=== PATIENT | female | born 1955 | race Hispanic/Latino ===

== ENCOUNTER 2017-05-15 20:19 | Observation (INO) | payer OTHER ==
[2017-05-15] MEDS ORDERED: NORMAL SALINE 1,000 ML IV ONE (20:28)
[2017-05-15 20:41] LABS: Hematocrit 37.8 % (37.0-47.0); Hemoglobin 12.9 gm/dL (12.5-16.0); Mean Cell Volume 95.5 fl (78-100); Mean Corpuscular Hemoglobin 32.6 pg (27-31); Mean Corpuscular Hgb Conc 34.1 g/dl (32-36); Mean Platelet Volume 9.7 fl (6.0-9.5); Neutrophil # 5.3 K/mm3 (1.3-6.0); Neutrophil % 60.7 % (42-75.0); Platelet Count 230 K/mm3 (150-450); Red Blood Count 3.96 M/mm3 (4.2-5.4); Red Cell Distribution Width 12.4 % (11.5-14.0); White Blood Count 8.7 K/mm3 (4.0-10.5)
[2017-05-15] MEDS ORDERED: HYDROmorphone HCL 1 MG/ML DISP.SYRIN IV ONE ×2 (20:47→22:16)
[2017-05-15] MEDS ORDERED: HYDROmorphone HCL 1 MG/ML DISP.SYRIN ONE (20:49)
[2017-05-15 20:52] LABS: Prothrombin Time (Patient) 9.6 Seconds (9.4-11.4)
[2017-05-15 20:53] LABS: INR 0.92 INR (0.90-1.10)
[2017-05-15 20:56] LABS: Albumin * 3.8 gm/dl (3.4-5.0); Anion Gap 14.8 mmol/L (6.8-13.8); BUN/Creatinine Ratio 13.3 (9.0-21.6); Bilirubin, Total 0.6 mg/dL (0.0-1.1); Ca. Corrected For Albumin 8.5 mg/dL (8.4-10.2); Calcium * 8.7 mg/dL (7.9-10.9); Carbon Dioxide 25.7 mmol/L (24-32.6); Potassium 3.5 mmol/L (3.4-4.6); Total Protein 6.9 gm/dL (6.2-8.2)
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
[2017-05-15] MEDS ORDERED: HYDROmorphone HCL 1 MG/ML DISP.SYRIN IV PRN (21:45)
--- NOTE | 2017-05-15 23:36 | HP ---
Chief Complaint - Chief Complaint Date of Service: 05/15/17 Time of Service: 23:35 Chief Complaint: "Fall, RT knee pain". Source of HPI- Pt; reliable, ER provider report. History of Present Illness: Mrs. Jimenez is a 62-yr-old [place] female who has no pertinent medical history. Pt states that she was out tonight drinking alcohol and she missed to steps on the stairwell after using the bathroom and she fell foward landing on her RT knee. She attempted to stand up and she felt her knee bend outward to the side. She denies hitting her head on surface or any object and there was no loss of consciousness. She could not bear any weight due to pain. EMS was called and she was brought to [facility] ER. At the ED, the Knee and tibial/fibula X- rays showed she had minimally displaced proximal tibia fracture with no displaced proximal fibula fracture & and transverse fracture through the proximal tibia. Ortho consulted by the ERP and he gave recommendations that the fracture was inoperable and that pt can be discharged home on knee immobilize, NWB status and follow-up next week at the Ortho clinic. ERP had concerns for ineffective pain control at the ED and compartment syndrome, which was reasonable enough for the pt to be admitted at least under observation status. - Patient's Past Medical History Patient History - Medical: No pertinent hx, Other Patient History - Cardiac/Respiratory: No pertinent hx Patient History - Cancer: No Hx of Cancer Patient History - Surgical Procedures: No surgical history Patient History - Other: None LMP (females 10-50): Menopausal - Family History Mother Family History - Medical: Father Family History - Medical: - Social History Living Situations: spouse Abuse History: No History of abuse Psych History: No pertinent hx Smoking Status: Current every day smoker Have you smoked in the past 12 months: Yes Do you dip or chew tobacco: No Patient requests Smoking Cessation Consult: No Initiate information on Smoking Cessation: No Alcohol Use: occasionally Drug Use: none - Immunizations Immunizations Up to Date: Yes History of Influenza Vaccine: Yes Review Of Systems (GEN) - Review of Systems Generalized/Overall Review: Absent: Weakness, Chills, Fever, Malaise EENTM: Absent: Eye Pain, Blurred Vision, Tearing Respiratory: Absent: Cough, Shortness of Breath, Orthopnea Cardiac: Absent: Chest Pain, Edema, Palpitations Abdominal: Absent: Nausea, Vomiting, Hematemesis Genitourinary: Absent: Burning, Itching, Urgency, Frequency Musculoskeletal: Absent: Joint Pain, Back Pain, Joint Swelling, Muscle Pain Neurological: Absent: Headache, Anxiety, Depressed, Emotional Problems Skin: Absent: Dryness, Lesions, Lumps Endocrine: Absent: Intolerance to Cold, Intolerance to Heat Misc: All systems neg except as marked Immunizations: IMMUNIZATION HX Immunizations Up to Date Yes History of Influenza Vaccine Yes Allergies/Adverse Reactions: Allergies Allergy/AdvReac Type Severity Reaction Status Date / Time codeine Allergy Verified 05/15/17 23:15 nitrofurantoin Allergy Verified 05/15/17 23:15 [From Macrodantin] Penicillins Allergy Verified 05/15/17 23:15 sulfisoxazole Allergy Verified 05/15/17 23:15 [From Gantrisin] Home Medications: HOME MEDICATIONS Calcium Carbonate [Calcium] 500 mg PO DAILY 05/15/17 [Last Taken Unknown] Exam - Exam Vital Signs: Vital Signs - Last Taken Temp 36.5 C 05/15/17 21:48 Pulse 76 05/15/17 22:17 Resp 16 05/15/17 23:06 BP 138/94 05/15/17 22:17 Pulse Ox 97 05/15/17 22:17 Constitutional: Present: Alert, Oriented x3, Cooperative, No distress ENT Exam: Present: normal ENT inspection, hearing grossly normal, dry mucous membranes. Absent: nasal drainage, pharyngeal erythema Eye Exam: bilateral eye: normal inspection, PERRL Neck: Present: full range of motion, supple, normal inspection Back Exam: Present: normal inspection, no CVA tenderness Breasts: Present: Exam deferred Respiratory: Present: normal breath sounds, No wheezing Cardiovascular/Chest: Present: normal peripheral pulses, regular rate, rhythm, no chest tenderness, no murmur Abdomen: Present: Normal bowel sounds, soft, nontender, nondistended /Rectal: Present: Exam deferred Extremity: Present: leg pain, other - RT Knee sweelling, Limited ROM and pain with flexion of the Knee Skin Exam: Present: warm/dry, no cyanosis, cool/dry Lymphatic: Present: no adenopathy Neurologic: Present: no motor/sensory deficits, alert, normal mood/affect, oriented x 3 Appearance: Present: appropriate appearance, appropriate insight Eye contact: Present: cooperative, good eye contact, normal speech Thoughts: Present: normal thought pattern, no apparent hallucination Diagnostic Studies: Laboratory Results WBC 8.7 K/mm3 (4.0-10.5) 05/15/17 20:36 RBC 3.96 M/mm3 (4.2-5.4) L 05/15/17 20:36 Hgb 12.9 gm/dL (12.5-16.0) 05/15/17 20:36 Hct 37.8 % (37.0-47.0) 05/15/17 20:36 MCV 95.5 fl (78-100) 05/15/17 20:36 MCH 32.6 pg (27-31) H 05/15/17 20:36 MCHC 34.1 g/dl (32-36) 05/15/17 20:36 RDW 12.4 % (11.5-14.0) 05/15/17 20:36 Plt Count 230 K/mm3 (150-450) 05/15/17 20:36 MPV 9.7 fl (6.0-9.5) H 05/15/17 20:36 Immature Gran % (Auto) 0.30 % (0.001-0.429) 05/15/17 20:36 Immature Gran # (Auto) 0.03 K/mm3 (0.000-0.0310) 05/15/17 20:36 Neutrophils % 60.7 % (42-75.0) 05/15/17 20:36 Lymphocytes % 32.2 % (20-51) 05/15/17 20:36 Monocytes % 5.4 % (0.0-9) 05/15/17 20:36 Eosinophils % 0.8 % (0.0-3.0) 05/15/17 20:36 Basophils % 0.6 % (0.0-1.0) 05/15/17 20:36 Nucleated RBC % 0.0 k/mm3 (0-1) 05/15/17 20:36 Neutrophils # 5.3 K/mm3 (1.3-6.0) 05/15/17 20:36 Lymphocytes # 2.8 k/mm3 (1.5-3.5) 05/15/17 20:36 Monocytes # 0.5 k/mm3 (0.0-1.0) 05/15/17 20:36 Eosinophils # 0.1 k/mm3 (0.0-0.7) 05/15/17 20:36 Absolute Basophils 0.1 k/mm3 (0.0-0.1) 05/15/17 20:36 PT 9.6 Seconds (9.4-11.4) 05/15/17 20:36 INR (Anticoag Therapy) 0.92 INR (0.90-1.10) 05/15/17 20:36 Sodium 138 mmol/L (132-142) 05/15/17 20:36 Plasma Sodium 138 mmol/L (130-142) 05/15/17 20:36 Potassium 3.5 mmol/L (3.4-4.6) 05/15/17 20:36 Chloride 101 mmol/L (97-106) 05/15/17 20:36 Carbon Dioxide 25.7 mmol/L (24-32.6) 05/15/17 20:36 Anion Gap 14.8 mmol/L (6.8-13.8) H 05/15/17 20:36 BUN 6 mg/dL (3-23) 05/15/17 20:36 Creatinine 0.45 mg/dL (0.4-1.4) 05/15/17 20:36 Est GFR (Non-Af Amer) 150 mL/min (60-130) H D 05/15/17 20:36 BUN/Creatinine Ratio 13.3 (9.0-21.6) 05/15/17 20:36 Random Glucose 92 mg/dL (70-110) 05/15/17 20:36 Calcium 8.7 mg/dL (7.9-10.9) 05/15/17 20:36 Calcium Adj for Albumin 8.5 mg/dL (8.4-10.2) 05/15/17 20:36 Total Bilirubin 0.6 mg/dL (0.0-1.1) 05/15/17 20:36 AST 22 U/L (0-48) 05/15/17 20:36 ALT 20 U/L (19-67) 05/15/17 20:36 Alkaline Phosphatase 60 U/L (50-170) 05/15/17 20:36 Total Protein 6.9 gm/dL (6.2-8.2) 05/15/17 20:36 Albumin 3.8 gm/dl (3.4-5.0) 05/15/17 20:36 Ethyl Alcohol 143.0 mg/dL (0.0-10.0) H 05/15/17 20:36 Assessment/Plan - Assessment/Plan (1) Fracture, tibia and fibula, proximal Assessment: Mrs. Jimenez is a 62-yr-old [place] Female who missed two steps on a stairway leading to a fall, landing on her RT knee. The Knee and Tibial/fibula X-ray films revealed she sustained minimally displaced proximal tibia fracture with no displaced proximal fibula fracture & and transverse fracture through the proximal tibia. I discussed with Dr. Fernandes about pt's presentation and that the pt would be admitted under observation status for pain control and due to concerns by the ERP for compartment syndrome. He recommended the same outpt treatment plan as he had discussed with the ERP: NWB status, apply RT knee Immobilizer, Ice pack to affected extremity, PT & follow-up next week with Ortho clinic. Will transition pt to oral pain medications during the overnight stay and will have PT evaluate her in am for the proper assisting device while on NWB status. Problem: Acute Qualifiers: Encounter type: initial encounter Fracture type: closed Laterality: right Qualified Code(s): S82.101A - Unspecified fracture of upper end of right tibia, initial encounter for closed fracture; S82.831A - Other fracture of upper and lower end of right fibula, initial encounter for closed fracture
[2017-05-16] MEDS ORDERED: ONDANSETRON HCL/PF 2 MG/ML VIAL IV PRN (01:03)
[2017-05-16] MEDS: HYDROcodone/ACETAMINOPHEN 1 EACH TABLET PO PRN ×2 (04:19→08:11)
[2017-05-16] MEDS: CALCIUM CARBONATE 500 MG TAB.CHEW PO SCH ×2 (04:22→09:00)
--- NOTE | 2017-05-16 06:24 | DS ---
(1) Fracture, tibia and fibula, proximal Problem: Acute Qualifiers: Encounter type: initial encounter Fracture type: closed Laterality: right Qualified Code(s): S82.101A - Unspecified fracture of upper end of right tibia, initial encounter for closed fracture; S82.831A - Other fracture of upper and lower end of right fibula, initial encounter for closed fracture Description of Stay: Admission HPI Mrs. Jimenez is a 62-yr-old [place] female who has no pertinent medical history. Pt states that she was out tonight drinking alcohol and she missed to steps on the stairwell after using the bathroom and she fell foward landing on her RT knee. She attempted to stand up and she felt her knee bend outward to the side. She denies hitting her head on surface or any object and there was no loss of consciousness. She could not bear any weight due to pain. EMS was called and she was brought to [facility] ER. At the ED, the Knee and tibial/fibula X- rays showed she had minimally displaced proximal tibia fracture with no displaced proximal fibula fracture & and transverse fracture through the proximal tibia. Ortho consulted by the ERP and he gave recommendations that the fracture was inoperable and that pt can be discharged home on knee immobilize, NWB status and follow-up next week at the Ortho clinic. ERP had concerns for ineffective pain control at the ED and compartment syndrome, which was reasonable enough for the pt to be admitted at least under observation status. Hospital Problems 1.) Proximal Tibia/Fibula Fracture. Mrs. Jimenez is a 62-yr-old [place] Female who missed two steps on a stairway leading to a fall, landing on her RT knee. The Knee and Tibial/fibula X-ray films revealed she sustained minimally displaced proximal tibia fracture with no displaced proximal fibula fracture & and transverse fracture through the proximal tibia. I discussed with Dr. Fernandes about pt's presentation and that the pt would be admitted under observation status for pain control and due to concerns by the ERP for compartment syndrome. He recommended the same outpt treatment plan as he had discussed with the ERP: NWB status, apply RT knee Immobilizer, Ice pack to affected extremity, PT & follow-up next week with Ortho clinic. Mrs. Jimenez did not require any parenteral analgesics during the overnight stay. She received oral narcotic once and she reported relief with the medicine. She denied having any numbness, tingling on the RT leg. She is determined to be in a stable state to be discharged home. She will be evaluated by the PT for the proper assistive device to use at home. She was educated on signs of compartment syndrome such as: numbness, tingling, pallor, pulselesness , and worsening pain not responding to narcotics and the need to contact provider with the symptoms. Also reinforced NWB, Knee immobilizer at all times and ice application. She will be discharged home on Vicodin 5/325 1 tab q 4 hours as needed for pain and stool softener to prevent constipation from narcotics. She was advised to call Dr. Fernandes's office to schedule for a follow-up visit next week. 2.) Etoh abuse Is sober enough to be discharged home. Laboratory Tests 05/15/17 05/16/17 20:36 05:35 Ethyl Alcohol 143.0 H Less than 3.0 Procedures Performed: none Discharge Disposition: Home self care Disposition: Home self-care Condition: Good Discharge Activity: Non-Weight bearing - RT foot. Discharge Diet: General/regular food Referrals: Benita Morrell FNP [Primary Care Provider] - Problem Oriented Discharge Instructions to Patient/Family: Acute Compartment Syndrome Additional Patient Instructions (free text): Please call Dr. Fernandes's office on Thursday to schedule for a follow-up visit. Prescriptions (Any new or edited meds): Docusate Sodium [Colace] 100 mg PO DAILY #30 cap HYDROcodone/ACETAMINOPHEN [Vicodin 5-300 mg Tablet] 1 each PO Q4H #24 tablet Complete Home Medications List: Complete Home Medication List: Calcium Carbonate [Calcium] 500 mg PO DAILY 05/15/17 Docusate Sodium [Colace] 100 mg PO DAILY #30 cap 05/16/17 HYDROcodone/ACETAMINOPHEN [Vicodin 5-300 mg Tablet] 1 each PO Q4H #24 tablet
[2017-05-16 08:12] VITALS: BP 135/76
== END 2017-05-16 09:26 | disposition home or self-care (01) ==
LOC: ER 20:19 → MS 21:50
PROVIDERS: ADMIT Nurse Practitioner; ATTEND Internal Medicine
DX: S82.221A Displaced transverse fracture of shaft of right tibia, initial encounter for closed fracture (principal); S82.424A Nondisplaced transverse fracture of shaft of right fibula, initial encounter for closed fracture; W10.9XXA Fall (on) (from) unspecified stairs and steps, initial encounter; F10.10 Alcohol abuse, uncomplicated
CPT/HCPCS: 36415; 73562; 73590; 80053; 85025; 85610; 96374; 96376; 97162; 99284; G0378; G0481; G8978; G8979; G8980